=== PATIENT | male | born 1965 | race Two or more races ===

== ENCOUNTER 2018-03-04 08:35 | Day surgery (SDC) | payer OTHER ==
[~2018-03-04] VITALS: Ht 172.7 cm; Wt 88.0 kg
[2018-03-04] VITALS (11 sets, daily range): BP systolic 110–131; BP diastolic 76–94
[2018-03-04] MEDS ORDERED: [UNRECOGNIZED DRUG - REMARK] PO (09:25)
[2018-03-04] MEDS ORDERED: OMEPRAZOLE20 M2 ORAL (09:25)
[2018-03-04] MEDS ORDERED: ASPIRIN81 MG ORAL (09:25)
[2018-03-04] MEDS ORDERED: cholesterol pill PO (09:25)
[2018-03-04] MEDS ORDERED: LR 1000ml ONE (10:00)
[2018-03-04] MEDS ORDERED: Lidocaine 1% MPF 10mg/ml 5ml ONE (10:00)
[2018-03-04] MEDS ORDERED: Propofol 200mg/20ml IV ONE (10:00)
[2018-03-04] MEDS ORDERED: Midazolam 2mg/2ml Inj ONE (10:00)
--- NOTE | 2018-03-04 10:04 | Short Stay Surgery H&P ---
History of Present Illness History of Present Illness Chief Complaint Abdominal pains/GERD HPI Gerry Todd is a 52 year old male who was admitted on for GERD/abdominal pains Patient History Allergies: Coded Allergies: No Known Allergies (Unverified , 03/04/18) Medication History Scheduled Aspirin* (Aspirin*), 81 MG ORAL DAILY, (Reported) Omeprazole (Omeprazole), Unknown Dose ORAL DAILY, (Reported) [blood pill], 5 MG PO DAILY, (Reported) [cholesterol pill], 20 MG PO DAILY, (Reported) Review of Systems Cardiovascular: Reports: no symptoms Respiratory: Reports: no symptoms Skeletal: Reports: trauma Gastrointestinal: Reports: gastro esophageal reflux disease Genitourinary: Reports: no symptoms Neurologic: Reports: no symptoms Endocrine: Reports: no symptoms Hematologic: Reports: no symptoms Physical Exam Vital Signs Last Vital Signs Date Time Temp Pulse Resp B/P (MAP) Pulse Ox O2 Delivery O2 Flow Rate FiO2 03/04/18 09:11 98.8 59 18 122/76 96 Room Air 98.8 Skin: normal HENT: normal Heart: normal Lungs: normal Abdomen: abnormal Extremities: normal Genitourinary: normal Plan Plan of Care Upper GI endoscopy and biopsy Preop Interventions None Summary of Findings See the report Attestation Are the patient's medical conditions optimized for surgery? Attestation Response: yes Suzy Bhatia MD Mar 04, 2018 10:04
--- NOTE | 2018-03-04 10:05 | Pre-Procedure Note/Attestation ---
Pre-Procedure Note/Attestation Complete Prior to Procedure Planned Procedure: left Procedure Narrative: Examination of the upper Gi tract via endoscopy and biopsy. Indications for Procedure Pre-Operative Diagnosis: R/O Peptic Ulcer/gastritis. Attestation I attest that I discussed the nature of the procedure; its benefits; risks and complications; and alternatives (and the risks and benefits of such alternatives ), prior to the procedure, with the patient (or the patient's legal commissary representative). I attest that, if there was a reasonable possibility of needing a blood transfusion, the patient (or the patient's legal commissary representative) was given the [place] [facility] standardized written summary, pursuant to the Lucio Margaret Blood Safety Act ([place] Health and Safety Code # 1645, as amended). I attest that I re-evaluated the patient just prior to the surgery and that there has been no change in the patient's H&P, except as documented below: Suzy Bhatia MD Mar 04, 2018 10:05
--- NOTE | 2018-03-04 10:11 | Endoscopy Procedure Note ---
Endoscopy Procedure Note General Procedures Performed: EGD - Minimal gastritis, otherwise completely normal UGI endoscopy, biopsy was taken from antrum. Specimen: yes Pt Tolerated Procedure Well: Yes Estimated Blood Loss: none Anesthesia Anesthesiologist: Dr. Neal Anesthesia: moderate sedation Medications Medication Given: see anesthesia record Inserted Devices Implant(s) used?: No Quality Quality of Bowel Preparation: Excellent GI Core Measures 50 yrs or older w/o bx or poly: Not Applicable 10yrs. F/U not recommended: Not Applicable If not recommended, why?: Med reason:<3 yrs.: System Reason:<3 yrs.: Suzy Bhatia MD Mar 04, 2018 10:11
--- NOTE | 2018-03-04 10:12 | Discharge Instructions ---
Discharge Instructions Discharge Instructions Follow up with: see the docotor after 2 weeks in the office. For Congestive Heart Failure Reminder Report to your physician any weight gain of 5 pounds or more in one week. Suzy Bhatia MD Mar 04, 2018 10:12
--- NOTE | 2018-03-04 12:03 | Anethesia Preoperative Eval ---
Anesthesia Pre-op PMH/ROS General Date of Evaluation: Mar 04, 2018 Time of Evaluation: 09:45 Anesthesiologist: jayla ASA Score: ASA 3 Mallampati Score Class I : Soft palate, uvula, fauces, pillars visible Class II: Soft palate, uvula, fauces visible Class III: Soft palate, base of uvula visible Class IV: Only hard plate visible Mallampati Classification: Class II Surgeon: bin Diagnosis: gerd/abdominal pain Surgical Procedure: egd Anesthesia History: none Social History: smoking - former smoker Family History: no anesthesia problems Allergies: Coded Allergies: No Known Allergies (Unverified , 03/04/18) Medications: see eMAR Past Medical History Cardiovascular: Reports: HTN, other - hypercholesterolemia Pulmonary: Reports: asthma Gastrointestinal/Genitourinary: Reports: GERD Neurologic/Psychiatric: Reports: depression/anxiety Anesthesia Pre-op Phys. Exam Physician Exam Last Vital Signs Date Time Temp Pulse Resp B/P (MAP) Pulse Ox O2 Delivery O2 Flow Rate FiO2 03/04/18 10:57 97.7 80 18 130/88 96 Room Air 97.7 Constitutional: NAD Neurologic: CN 2-12 intact Cardiovascular: RRR Respiratory: CTA Gastrointestinal: S/NT/ND Airway Exam Mallampati Score: Class II MO: full Neck: supple TMD: 2fb ROM: full Teeth: intact Anesthesia Pre-op A/P Risk Assessment & Plan Assessment: asa3 Plan: mac Status Change Before Surgery: No Pre-Antibiotics Drug: Kristie Lucero MD Mar 04, 2018 12:03
--- NOTE | 2018-03-04 12:04 | Immediate Post-Op Evaluation ---
Immediate Post-Op Evalulation Immediate Post-Op Evalulation Procedure: egd w/bx Date of Evaluation: Mar 04, 2018 Time of Evaluation: 10:29 IV Fluids: 100ml lr Blood Products: none Estimated Blood Loss: neglgible Blood Pressure Systolic: 127 Blood Pressure Diastolic: 90 Pulse Rate: 87 Respiratory Rate: 18 O2 Sat by Pulse Oximetry: 95 Temperature (Fahrenheit): 97.6 Pain Score (1-10): 0 Nausea: No Vomiting: No Complications none Patient Status: awake, reacts, patent Hydration Status: adequate Drug: Kristie Lucero MD Mar 04, 2018 12:04
[2018-03-04] MEDS ORDERED: LR 1000ml 1,000 ML IVLG SCH (12:08)
--- NOTE | 2018-03-04 12:08 | 48 Hour Post Anesthesia Eval ---
Post Anesthesia Evaluation Procedure: egd w/bx Date of Evaluation: Mar 04, 2018 Time of Evaluation: 10:31 Blood Pressure Systolic: 123 0: 90 Pulse Rate: 79 Respiratory Rate: 18 Temperature (Fahrenheit): 97.6 O2 Sat by Pulse Oximetry: 95 Airway: patent Nausea: No Vomiting: No Pain Intensity: 0 Hydration Status: adequate Cardiopulmonary Status: stable Mental Status/LOC: patient returned to baseline Post-Anesthesia Complications: none Follow-up care needed: N/A Kristie Uribe MD Mar 04, 2018 12:08
[2018-03-04] MEDS ORDERED: DiphenhydrAMINE 50mg/ml Inj IVP PRN (12:15)
[2018-03-04] MEDS ORDERED: fentaNYL 100 mcg/2 mL IV PRN (12:15)
[2018-03-04] MEDS ORDERED: Midazolam 2mg/2ml Inj IVP PRN (12:15)
[2018-03-04] MEDS ORDERED: Atropine Inj 1mg/10ml Syr IV PRN (12:15)
--- NOTE | 2018-03-04 19:31 | Pre-op HX & Phy Repo 2 SIG ---
DATE OF ADMISSION: 03/04/2018 HISTORY OF PRESENT ILLNESS: The applicant is 52-year-old [id number] gentleman who is being seen prior to undergoing the procedure of upper GI endoscopy for which he has been scheduled to receive for evaluation of his gastrointestinal symptoms that he has been experiencing subsequent to his work injury after taking medications. The applicant basically complains of experiencing pain over the epigastric area which occasionally radiates toward the chest section. He has been receiving multiple NSAID medications including ibuprofen and meloxicam and as such he has been experiencing the symptoms that he never had before. These prescriptions were given to him because of his pain that he was experiencing in different parts of his injured area in the musculoskeletal system. He also does have heartburn for which he has been receiving occasionally Mylanta, antiacid, and omeprazole. He denies any history of vomiting blood, passing black stool, rectal bleeding etc. There is no history of difficulty swallowing. The applicant did not have any history of any major gastrointestinal problems or ulcers etc. 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 Subsequently, he was seen by different physicians and he received multiple treatments including medical as well as a physical therapy etc. PAST MEDICAL HISTORY: Basically, the applicant has had history of history of hypertension, high cholesterol, and diabetic status. PAST SURGICAL HISTORY: He has had disk surgery and also surgery for umbilical hernia. ALLERGIES: He is allergic to pollen and dust. HABITS: The applicant denies drinking alcohol or smoking cigarettes, and using illegal drugs. MEDICATIONS: Currently aspirin 81 mg, propranolol 10 mg daily, , atorvastatin, amlodipine, metformin, meloxicam, any he also uses inhalers. REVIEW OF SYSTEMS: Basically history of present illness. He denies any particular chest pain, shortness of breath, or urinary symptoms but he has reported that he has been psychologically depressed. PHYSICAL EXAMINATION: GENERAL: At this time reveals alert and well-oriented gentleman, does not seem to be in any acute distress, looks well developed and nourished, does not seem to be in any stress at this point, he answers the questions quite properly. VITAL SIGNS: All stable. HEENT: Normocephalic. Pupils are equal in size and reactive to light and accommodation. No visible jaundice. Buccal cavity, tongue midline, well hydrated. No ulcers. NECK: Supple. No JVD, thyromegaly, or adenopathy. CHEST: Clear to auscultation. No rales or rhonchi. HEART: S1 and S2 normal. Regular rhythm. No gallops or murmur. ABDOMEN: Soft, but mildly tender mostly over the upper part of the abdomen and there was also bulging of the abdomen possibly consistent with ventral hernia. There is no palpable mass. No hepatosplenomegaly. Bowel sounds are present. EXTREMITIES: Within normal limits. No pretibial edema, cyanosis, or clubbing. CENTRAL NERVOUS SYSTEM: Grossly normal. PRELIMINARY PREOPERATIVE IMPRESSION: 1. Epigastric pain of uncertain etiology, rule out NSAID induced gastropathy, rule out peptic ulcer disease, gastritis, duodenal ulcer, gastric ulcers, esophagitis. 2. Possible ventral hernia. 3. History of bodily injury. RECOMMENDATION: The applicant seems to be stable at this time to undergo the procedure of upper GI endoscopy for which he has been scheduled. He understands the risks and benefits and signed the consent. Said Isa Bhatia DR: Albaro JOB#: [id number] CC:
--- NOTE | 2018-03-04 20:31 | Operative Note - Dictated ---
DATE OF OPERATION: 03/04/2018 SURGEON: Suzy Bhatia M.D. PROCEDURE: Esophagogastroduodenoscopy with biopsy. PREOPERATIVE DIAGNOSIS: Epigastric pain, abdominal pain, history of GERD. POSTOPERATIVE DIAGNOSIS: Mild gastritis, otherwise completely normal upper GI endoscopy. Biopsy was taken per random from the antral area. MEDICATION USED: Per Dr. Neal, anesthesiologist. INSTRUMENT: GIF Olympus upper GI video endoscope. DESCRIPTION OF PROCEDURE: The patient after arriving in endoscopy unit, was told about risks and benefits of the procedure, which he accepted and signed informed consent. At this time, he was put on the left lateral decubitus position. After adequate IV sedation, the scope was gently passed through the cricopharyngeal area, was lodged into the upper esophagus, and gradually advanced towards gastroesophageal junction. The entire length of the esophagus looked normal. No evidence of varices, inflammatory process, ulceration, etc., was found. GE junction also looked normal without any hiatal hernia or Holguin's. At this time, the scope was advanced into the stomach. Gastric cavity was distended and gastric folds came into view. Gradually, the areas of the fundus, the body, and the antrum were examined which revealed evidence of minimal inflammatory process consistent with mild/minimal gastritis. One random biopsy from the antral area was obtained. At this time, the retroflexion maneuver was also applied and the area of the gastroesophageal junction was examined which did not reveal any other abnormalities. Finally, the scope was passed through the pylorus. First and second portion of duodenum were examined, which looked completely normal. At this time, the scope was pulled out and the procedure was terminated. The patient tolerated the procedure well and left the endoscopy room in good condition. Suzy Bhatia M.D. DR: CHRISTIAN JOB#: [id number] CC:
== END 2018-03-04 11:40 | disposition home or self-care (01) ==
LOC: GAS 08:35
DX: K29.70 Gastritis, unspecified, without bleeding (principal); K21.9 Gastro-esophageal reflux disease without esophagitis; Z79.82 Long term (current) use of aspirin; Z79.84 Long term (current) use of oral hypoglycemic drugs; I10 Essential (primary) hypertension; E78.00 Pure hypercholesterolemia, unspecified; E11.9 Type 2 diabetes mellitus without complications; Z87.891 Personal history of nicotine dependence; F32.9 Major depressive disorder, single episode, unspecified; F41.9 Anxiety disorder, unspecified
CPT/HCPCS: 43239; J2250; J2704; J7120; 94003; 94150